=== PATIENT | female | born 1975 | race Caucasian/White ===

== ENCOUNTER 2019-03-04 10:11 | Emergency (ER) | payer MEDICAID ==
[~2019-03-04] VITALS: Ht 162.6 cm; Wt 68.0 kg
[2019-03-04] MEDS ORDERED: BACITRACIN ZINC OINT UDPKT TOP ONE (12:00)
[2019-03-04] MEDS ORDERED: HYDROCODONE/ACETAMINOPHEN 5/325MG TABLET PO ONE (12:00)
[2019-03-04] MEDS ORDERED: LIDOCAINE HCL/PF 1% 10 MG/ML 5ML VIAL IJ ONE (12:00)
[2019-03-04] MEDS ORDERED: KETOROLAC 30MG/ML VIAL IM ONE (12:00)
[2019-03-04 13:28] VITALS: BP 125/80
== END 2019-03-04 13:30 | disposition home or self-care (01) ==
LOC: ER 10:11
DX: N75.0 Cyst of Bartholin's gland (principal); E05.90 Thyrotoxicosis, unspecified without thyrotoxic crisis or storm; F12.10 Cannabis abuse, uncomplicated; Z98.890 Other specified postprocedural states
CPT/HCPCS: 10060; 96372; 99283; A4217; J1885; J3490; Z7610